=== PATIENT | female | born 1945 | race Caucasian/White ===

== ENCOUNTER → 2018-01-04 | Outpatient (CLI) | payer MEDICARE ==
[~2018-01-04] MED LIST: ACETAMINOPHEN-1 EAC1 PO; FENOFIBRATE160 MG PO; IBUPROFEN 800800 M1 PO; LISINOPRIL10 MG PO; NYSTATIN 100,0015 G1 TP; PHENAZOPYRIDIN200 M2 PO; SIMVASTATIN40 MG PO; SYNTHROID25 MCG PO
== END ==
LOC: M.RAD 10:32
DX: M25.522 Pain in left elbow (principal)

== ENCOUNTER → 2018-01-11 | Outpatient (CLI) | payer MEDICARE | LOC: M.RAD 01-08 10:30 | DX: Z12.31 Encounter for screening mammogram for malignant neoplasm of breast (principal) ==

== ENCOUNTER 2018-10-13 14:01 | Inpatient (IN) | payer MEDICARE ==
[~2018-10-13] VITALS: Ht 157.5 cm; Wt 74.8 kg
[~2018-10-13 14:01] MED LIST changes: -SYNTHROID25 MCG PO
[2018-10-13 14:07] VITALS: BP 164/81
[2018-10-13 14:43] LABS: ABSOLUTE EOSINOPHILS 0.2 thou/uL (0.0-0.7); ABSOLUTE LYMPHOCYTES 1.7 thou/uL (0.8-5.3); ABSOLUTE MONOCYTES 0.5 thou/uL (0.0-1.2); ABSOLUTE NEUTROPHILS 3.7 thou/uL (1.6-8.1); BASOPHILS 0.6 %; EOSINOPHILS 2.5 %; HEMATOCRIT 37.1 % (37.0-47.0); HEMOGLOBIN 12.4 gm/dL (12.0-15.0); LYMPHOCYTES 28.1 %; MCH 31.1 pg (26.0-34.0); MCHC 33.3 g/dL (28.0-37.0); MCV 93.3 fL (80.0-100.0); MONOCYTES 7.9 %; MPV 7.9 fl. (7.2-11.1); NUCLEATED RBCS 0 /100WBC; PLATELET COUNT* 249 thou/uL (150-400); POLYS 60.9 %; RBC 3.98 mil/uL (4.20-5.00); RDW-CV 13.3 % (10.5-14.5); WBC 6.1 thou/uL (4.0-11.0)
[2018-10-13 14:54] LABS: APTT 22.8 Seconds (25.0-31.3); PROTIME 10.7 Seconds (9.20-11.50)
[2018-10-13 14:56] LABS: ANION GAP 8 mmol/L (7-16); BUN 22 mg/dL (7-18); CALCIUM 9.1 mg/dL (8.5-10.1); CHLORIDE 105 mmol/L (98-107); CO2 28 mmol/L (21-32); CREATININE 1.1 mg/dL (0.6-1.3); GLUCOSE 99 mg/dL (70-99); POTASSIUM 4.6 mmol/L (3.5-5.1); SODIUM 141 mmol/L (136-145)
[2018-10-13 15:10] LABS: ALBUMIN 3.7 g/dL (3.4-5.0); ALKALINE PHOSPHATASE 40 U/L (46-116); NT-PRO BRAIN NAT PEPTIDE 147 pg/mL (<300); SGOT 33 U/L (15-37); SGPT 24 U/L (30-65); TOTAL BILIRUBIN 0.4 mg/dL (<0.1-1.0); TOTAL PROTEIN 7.5 g/dL (6.4-8.2); TROPONIN-I LEVEL <0.06 ng/mL (<0.06)
[2018-10-13 23:15] VITALS: BP 128/76
[2018-10-13 23:30] VITALS: BP 120/51
[2018-10-14] MEDS ORDERED: AMBIEN 10 MG TA10 MG PO (00:23)
[2018-10-14 04:00] VITALS: BP 111/59
[2018-10-14 05:58] LABS: ALBUMIN 3.2 g/dL (3.4-5.0); ALKALINE PHOSPHATASE 34 U/L (46-116); ANION GAP 5 mmol/L (7-16); BUN 20 mg/dL (7-18); CALCIUM 8.6 mg/dL (8.5-10.1); CHLORIDE 108 mmol/L (98-107); CHOLESTEROL 167 mg/dL (<200); CO2 28 mmol/L (21-32); CREATININE 1.1 mg/dL (0.6-1.3); GLUCOSE 83 mg/dL (70-99); HDL CHOLESTEROL 58 mg/dL (>40); LDL CHOLESTEROL 96 mg/dL (<100); POTASSIUM 4.4 mmol/L (3.5-5.1); SGOT 16 U/L (15-37); SGPT 21 U/L (30-65); SODIUM 141 mmol/L (136-145); TC:HDL 2.9 Ratio (Not establshd); TOTAL BILIRUBIN 0.3 mg/dL (<0.1-1.0); TOTAL PROTEIN 6.1 g/dL (6.4-8.2); TRIGLYCERIDE 69 mg/dL (<150); VLDL 14 mg/dL (<40)
[2018-10-14 06:01] LABS: SERUM ASSESSMENT Clear
[2018-10-14 08:00] VITALS: BP 119/56
--- NOTE | 2018-10-14 10:08 | EKG ---
[place] [address] ELECTROCARDIOGRAM REPORT Name: DENTON IGLESIAS Room: [address] ADM IN [facility]#: [id number] Admission: 10/13/18 Attend Phys: Arnav Schultz MD Discharge: Date of : 47 Report #: [id number] THIS REPORT FOR: //name// [facility] ED Test Date: 2018-10-13 Test Time: 14:48:19 Pat Name: DENTON IGELSIAS Department: Room: [facility] Gender: F Oracle Technical Developer: VERN : 1945 Requested By: Tone Rodas Order Number: [id number] MD: Carlos Meyer Measurements Intervals [place] Rate: 68 P: 50 SD: 168 QRS: 16 QRSD: 100 T: 29 QT: 393 QTc: 418 Interpretive Statements Sinus rhythm Atrial premature complex Low voltage, precordial leads Compared to ECG 02/02/2009 11:26:26 Atrial premature complex(es) now present Low QRS voltage now present Sinus bradycardia no longer present Electronically Signed On 10-14-2018 10:08:14 HYPNOTHERAPIST by Carlos Meyer [email or web address] <ELECTRONICALLY SIGNED> By: Carlos Meyer MD, [facility] 10/14/18 1008 1448 1448 Carlos Meyer MD, [facility] /EPI
[2018-10-14 11:40] VITALS: BP 150/58
[2018-10-14 15:50] VITALS: BP 133/67
[2018-10-14 19:30] VITALS: BP 132/55
[2018-10-14 23:09] LABS: GLYCOHEMOGLOBIN (HGB A1C) 5.2 % (4.8-5.6)
[2018-10-15] VITALS (8 sets, daily range): BP systolic 114–143; BP diastolic 50–76
[2018-10-15 05:52] LABS: CALCIUM 8.9 mg/dL (8.5-10.1); POTASSIUM 3.8 mmol/L (3.5-5.1)
[2018-10-15] MEDS ORDERED: ADULT LOW DOSE81 MG PO (13:56)
[2018-10-15] MEDS ORDERED: ATORVASTATIN CA40 MG PO (13:56)
[2018-10-15] MEDS ORDERED: SYNTHROID50 MCG PO (13:56)
[2018-10-15] MEDS ORDERED: VITAMIN B-12500 MCG PO (13:56)
--- NOTE | 2018-10-15 14:00 | CON ---
[address] [address] CONSULTATION Name: DENTON IGLESIAS Room: [address] IN [facility]#: [id number] Admission: 10/13/18 Attend Phys: Arnav Schultz MD Discharge: Date of : 47 Report #: [id number] THIS REPORT FOR: //name// CC: Karthikeyan Bricenotito Arnav Schultz DATE OF SERVICE: 10/14/2018 HISTORY OF PRESENT ILLNESS: This is a 73-year-old female patient who was evaluated by me for an episode she had. The records from the Emergency Room and H and P were reviewed. It looks like she had an episode where she had speech difficulty. She was feeling funny. She may have some problem with visual spatial assessment, but other people noticed that she had slurred speech. It was followed by a severe generalized headache. She has no prior history of migraine. She initially did not come to the hospital, but subsequently at the urging of her coworker she did come to the hospital. REVIEW OF SYSTEMS: Indicate during this episode, she did have speech difficulty. She is not sure whether she has any focal motor deficit. She has a history of hypothyroidism, high cholesterol, hysterectomy, bladder surgery, total knee replacement and rotator cuff surgery. She had some back issues in the past and had MRI at that time. REVIEW OF SYSTEMS: A 14-point review of system was otherwise unremarkable and she feels back to her baseline. She does not complain of any new eye, ENT, cardiac, respiratory, GI, , musculoskeletal, constitutional, dermatological, hematological, psychiatric, throat, allergic symptom associated with present symptomatology, which is new. PAST MEDICAL HISTORY: Negative for any stroke. FAMILY HISTORY: Negative for any early age stroke. SOCIAL HISTORY: She indicated she does not smoke or drink alcohol. PHYSICAL EXAMINATION: The patient's examination indicate she is alert, responsive, able to follow simple and complex command. Her speech, concentration, fund of knowledge and memory is at her baseline. Cranial nerve examination 2-12 looks unremarkable. She has symmetrical strength, sensation, reflexes and tone in all four extremities. There is no meningeal sign. There is no carotid bruit. There is no cerebellar sign. She is reasonably well-developed individual who does not have any dysmorphic features of eyes, ears and face. Her vision and hearing looks adequate. Her pulses are palpable. She has no edema, cyanosis or jaundice. Her blood pressure is 150/58, respirations 17, pulse is 66 and temperature is 97.4. [place] [address] CONSULTATION Name: DENTON IGLESIAS Room: [address] IN [facility]#: [id number] Admission: 10/13/18 Attend Phys: Arnav Schultz MD Discharge: Date of : 47 Report #: [id number] LABORATORY DATA: Her WBC count is 6.1. Sodium is known as 141. CT scan is unremarkable. Carotid Doppler shows a question of stenosis, but that is on the basis of velocities only. IMPRESSION: 1. Transient ischemic attack versus cerebrovascular accident. 2. Question of stenosis on the left carotid artery. 3. No history of migraine, but the patient has significant headache following it and because of that we will rule out the possibility of aneurysm in this patient. 4. Her last TSH was abnormal and I will check that again especially because she felt tired and sometime does that. RECOMMENDATION: 1. I will like to get an MRI done and we will get it stat today to see if the carotid stenosis is real or not. 2. If it is real that should be considered symptomatic with her speech difficulty and will need surgical evaluation rather soon. 3. We will also see if she had a stroke or not. 4. I will do a sed rate, TSH and vitamin B12 in this patient. 5. If she is already on aspirin and statin, I agree with that. 6. The rest of the workup will depend upon the outcome of these testing. Thank you very much for this referral. <ELECTRONICALLY SIGNED> By: Horace Mancilla MD 10/15/18 1400 [id number] [id number] Mancilla MD /nt
--- NOTE | 2018-10-15 15:04 | 2DMMODE ---
[place] [address] 2 D/M-MODE ECHOCARDIOGRAM Name: DENTON IGLESIAS Room: [address] IN [facility].#: [id number] Admission: 10/13/18 Attend Phys: Arnav Schultz MD Discharge: Date of : 47 Date of Service: 10/15/18 1504 Report #: [id number] THIS REPORT FOR: //name// APPROVED REPORT Study performed: 10/15/2018 10:06:43 EXAM: Comprehensive 2D, Doppler, and color-flow Echocardiogram Patient Location: Bedside BSA: 1.76 HR: 64 bpm BP: 129/76 mmHg Other Information Study Quality: Good Indications CVA/TIA Echo Enhancing Agent Indication: Rule out Shunt Agent(s) / Amount(s) Used: Agitated Saline cc 2D Dimensions IVSd: 9.17 (7-11mm) LVOT Diam: 22.54 (18-24mm) LVDd: 43.58 mm PWd: 9.58 (7-11mm) Ascending Ao: 38.62 (22-36mm) LVDs: 27.04 (25-40mm) Aortic Root: 26.69 mm Volumes Left Atrial Volume (Systole) LA ESV Index: 29.40 mL/m2 Aortic Valve AoV Peak Ashkan.: 1.56 m/s AO Peak Gr.: 9.74 mmHg LVOT Max P.54 mmHg AO Mean Gr.: 5.26 mmHg LVOT Mean P.24 mmHg LVOT Max V: 0.80 m/s AO V2 VTI: 27.67 cm LVOT Mean V: 0.51 m/s MANDY (VTI): 2.56 cm2 LVOT V1 VTI: 17.77 cm Mitral Valve E/A Ratio: 0.67 [place] [address] 2 D/M-MODE ECHOCARDIOGRAM Name: DENTON IGLESIAS Room: [address] IN [facility]#: [id number] Admission: 10/13/18 Attend Phys: Arnav Schultz MD Discharge: Date of : 47 Date of Service: 10/15/18 1504 Report #: [id number] MV Decel. Time: 319.08 ms MV E Max Ashkan.: 0.58 m/s MV PHT: 92.53 ms MVA (PHT): 2.38 cm2 TDI E/Lateral E': 8.29 E/Medial E': 8.29 Medial E' Ashkan.: 0.07 m/s Lateral E' Ashkan.: 0.07 m/s Pulmonary Valve PV Peak Ashkan.: 1.13 m/s PV Peak Gr.: 5.10 mmHg Tricuspid Valve RAP Estimate: 5.00 mmHg TR Peak Gr.: 21.87 mmHg RVSP: 26.87 mmHg PA Pressure: 26.87 mmHg Left Ventricle The left ventricle is normal size. There is normal LV segmental wall motion. There is normal left ventricular wall thickness. Left ventricular systolic function is normal. The left ventricular ejection fraction is within the normal range. LVEF is 60-65%. Grade I - abnormal relaxation pattern. Right Ventricle The right ventricle is normal size. The right ventricular systolic function is normal. Atria The left atrium size is normal. Injection of bubbles documented no interatrial shunt. The right atrium size is normal. Aortic Valve Mild aortic valve sclerosis. Trace aortic regurgitation. There is no aortic valvular stenosis. Mitral Valve The mitral valve is normal in structure. There is no mitral valve regurgitation noted. No evidence of mitral valve stenosis. Tricuspid Valve The tricuspid valve is normal in structure. Trace tricuspid regurgitation[place] [address] 2 D/M-MODE ECHOCARDIOGRAM Name: DETNON IGLESIAS Room: [address]#: [id number] Admission: 10/13/18 Attend Phys: Arnav Schultz MD Discharge: Date of : 47 Date of Service: 10/15/18 1504 Report #: [id number] The pulmonary valve is normal in structure. There is no pulmonic valvular regurgitation. Great Vessels The aortic root is normal in size. IVC is normal in size and collapses >50% with inspiration. Pericardium There is no pericardial effusion. <Conclusion> The left ventricle is normal size. There is normal left ventricular wall thickness. Left ventricular systolic function is normal. The left ventricular ejection fraction is within the normal range. LVEF is 60-65%. Grade I - abnormal relaxation pattern. The right ventricle is normal size. The left atrium size is normal. Mild aortic valve sclerosis. Trace aortic regurgitation. There is no aortic valvular stenosis. The mitral valve is normal in structure. The tricuspid valve is normal in structure. IVC is normal in size and collapses >50% with inspiration. There is no pericardial effusion. There is normal LV segmental wall motion. Injection of bubbles documented no interatrial shunt. <ELECTRONICALLY SIGNED> By: Collins Andrea MD, FACC 10/15/18 1504 1504 1504 Collins Andrea MD, FACC /INF
[2018-10-15] MEDS ORDERED: SYNTHROID25 MC1 PO (17:19)
== END 2018-10-15 17:45 | disposition home or self-care (01) | DRG 68 ==
LOC: M.ERS 14:01 → M.2W 15:44 → M.TBA-ER 15:44 → M.2W 23:39
PROVIDERS: Emergency Medicine Emergency Medical Services; ADMIT Family Medicine
DX: I65.29 Occlusion and stenosis of unspecified carotid artery (principal); E78.5 Hyperlipidemia, unspecified; E03.9 Hypothyroidism, unspecified; E53.8 Deficiency of other specified B group vitamins; E78.00 Pure hypercholesterolemia, unspecified; I12.9 Hypertensive chronic kidney disease with stage 1 through stage 4 chronic kidney disease, or unspecified chronic kidney disease; N18.3 Chronic kidney disease, stage 3 (moderate); Z96.659 Presence of unspecified artificial knee joint; Z90.710 Acquired absence of both cervix and uterus; Z88.6 Allergy status to analgesic agent; Z79.899 Other long term (current) drug therapy; Z80.9 Family history of malignant neoplasm, unspecified

== ENCOUNTER → 2019-07-23 | Outpatient (CLI) | payer MEDICARE ==
[~2019-07-23] MED LIST changes: +ADULT LOW DOSE81 MG PO; +AMBIEN 10 MG TA10 MG PO; +ATORVASTATIN CA40 MG PO; +SYNTHROID25 MC1 PO; +SYNTHROID50 MCG PO; +VITAMIN B-12500 MCG PO
== END ==
LOC: M.WC 12:45
DX: L97.821 Non-pressure chronic ulcer of other part of left lower leg limited to breakdown of skin (principal); I87.2 Venous insufficiency (chronic) (peripheral); I10 Essential (primary) hypertension; E03.9 Hypothyroidism, unspecified; E78.00 Pure hypercholesterolemia, unspecified

== ENCOUNTER → 2019-07-30 | Outpatient (CLI) | payer MEDICARE | LOC: M.WC 05:19 | DX: L97.821 Non-pressure chronic ulcer of other part of left lower leg limited to breakdown of skin (principal); I87.2 Venous insufficiency (chronic) (peripheral); E78.00 Pure hypercholesterolemia, unspecified; E03.9 Hypothyroidism, unspecified; I10 Essential (primary) hypertension ==

== ENCOUNTER → 2019-08-06 | Outpatient (CLI) | payer MEDICARE | LOC: M.WC 05:14 | DX: L97.821 Non-pressure chronic ulcer of other part of left lower leg limited to breakdown of skin (principal); S81.802D Unspecified open wound, left lower leg, subsequent encounter; E03.9 Hypothyroidism, unspecified; E78.00 Pure hypercholesterolemia, unspecified; I87.2 Venous insufficiency (chronic) (peripheral); I10 Essential (primary) hypertension; W22.8XXD Striking against or struck by other objects, subsequent encounter ==

== ENCOUNTER → 2020-03-04 | Outpatient (CLI) | payer MEDICARE | LOC: M.RAD 13:43 | DX: Z12.31 Encounter for screening mammogram for malignant neoplasm of breast (principal) ==

== ENCOUNTER → 2020-04-20 | Outpatient (CLI) | payer MEDICARE | LOC: M.LAB 09:03 | PROVIDERS: ATTEND Internal Medicine Gastroenterology | DX: Z01.812 Encounter for preprocedural laboratory examination (principal); Z11.59 Encounter for screening for other viral diseases; R13.10 Dysphagia, unspecified ==

== ENCOUNTER → 2020-06-22 | Outpatient (CLI) | payer MEDICARE | LOC: M.LAB 14:52 | PROVIDERS: ATTEND Internal Medicine Gastroenterology | DX: Z01.812 Encounter for preprocedural laboratory examination (principal); K22.2 Esophageal obstruction; Z20.828 Contact with and (suspected) exposure to other viral communicable diseases ==

== ENCOUNTER → 2020-10-16 | Outpatient (CLI) | payer MEDICARE ==
[2020-10-16 13:08] LABS: HEMOGLOBIN 12.5 gm/dL (12.0-15.0); MCH 30.3 pg (26.0-34.0); MCV 91.9 fL (80.0-100.0); MPV 7.4 fl. (7.2-11.1); RBC 4.14 mil/uL (4.20-5.00); RDW-CV 13.6 % (10.5-14.5); WBC 5.2 thou/uL (4.0-11.0)
[2020-10-16 13:22] LABS: CALCIUM 9.2 mg/dL (8.5-10.1); CREATININE 1.1 mg/dL (0.6-1.3); POTASSIUM 4.3 mmol/L (3.5-5.1)
== END ==
LOC: M.LAB 12:46
PROVIDERS: ATTEND Podiatrist
DX: Z01.812 Encounter for preprocedural laboratory examination (principal); Z01.818 Encounter for other preprocedural examination; M20.12 Hallux valgus (acquired), left foot; M20.42 Other hammer toe(s) (acquired), left foot

== ENCOUNTER → 2020-10-27 | Outpatient (CLI) | payer MEDICARE | LOC: M.LAB 16:42 | PROVIDERS: ATTEND Podiatrist | DX: Z20.822 Contact with and (suspected) exposure to COVID-19 (principal) ==

== ENCOUNTER → 2021-06-22 | Outpatient (CLI) | payer MEDICARE | LOC: M.RAD 12:45 | PROVIDERS: ATTEND Family Medicine | DX: Z12.31 Encounter for screening mammogram for malignant neoplasm of breast (principal) ==

== ENCOUNTER → 2021-07-09 | Outpatient (CLI) | payer MEDICARE | LOC: M.CT 11:56 | PROVIDERS: ATTEND Family Medicine | DX: K44.9 Diaphragmatic hernia without obstruction or gangrene (principal); K57.30 Diverticulosis of large intestine without perforation or abscess without bleeding; R10.9 Unspecified abdominal pain ==